=== PATIENT | male | born 1965 | race Caucasian/White ===

== ENCOUNTER 2016-11-07 19:22 | Emergency (ER) | payer OTHER ==
[2016-11-07 19:28] VITALS: RESP 16; TEMP 98.2
[2016-11-07] MEDS ORDERED: TDAP ADULT 0.5 ML INJ (BOOSTRIX) IM ONE (19:46)
--- NOTE | 2016-11-07 19:47 | EDPHY ---
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 He sustained a head laceration and has a headache but did not lose consciousness. No neck or back pain and no weakness or numbness in extremities. No vomiting. REVIEW OF SYSTEMS: Eye: no change in vision ENT: no sore throat Cardiac: no chest pain or syncope Pulmonary: no cough or SOB Abdomen: no vomiting, diarrhea, abdominal pain Musculoskeletal: no back pain Skin: Scalp laceration Neuro: HPI Constitutional: no fever : no urinary symptoms A comprehensive 10 point review of systems is otherwise negative aside from elements mentioned in the history of present illness. PAST MEDICAL HISTORY: Negative Social history: Tobacco smoker, this happened at work General Appearance: Alert and conversant, cooperative. Eyes: No scleral icterus. ENT, Mouth: Normal mucous membranes. No hemotympanum Respiratory: Normal respiratory effort, breath sounds equal, lungs are clear to auscultation. Cardiovascular: Regular rate and rhythm. Gastrointestinal: Abdomen is soft and non tender. Neurological: Alert and oriented x3. Normally conversant. Face symmetric, normal movement and sensation in all extremities. Skin: 3 cm scalp laceration on the right occiput. Musculoskeletal: No cervical thoracic or lumbar spine tenderness to palpation. Psychiatric: Not agitated. Emergency Department course/MDM: Patient has moderate headache and severe mechanism with 5 foot fall onto concrete, I feel potential benefit of CT outweighs potential harm in this case. Fall from a height of greater than 3 feet. Tetanus updated. Cervical spine cleared clinically. Smoking Status: Heavy smoker Constitutional: Initial Vital Signs Temperature (C) 36.8 C 11/07/16 19:24 Heart Rate 99 11/07/16 19:24 Respiratory Rate 16 11/07/16 19:24 Blood Pressure 139/91 H 11/07/16 19:24 O2 Sat (%) 97 11/07/16 19:24 O2 Delivery Mode Room Air Allergies/Adverse Reactions: No Known Allergies Allergy (Unverified 11/07/16 19:28) Home Medications: Medication Instructions Recorded NK [No Known Home Meds] 11/07/16 Medical Decision Making - Diagnostics Imaging: Imaging Impressions Head CT 11/07/16 19:46 Impression: 1. Left parieto-occipital scalp laceration with no acute intracranial findings. 2. Mild atrophy as above. Findings discussed with Juliano Degroot 11/07/2016 at 20:50. Noncontrast head CT performed for trauma viewed independently by myself is negative. Reviewed with Carla at 8:52 p.m. negative for trauma Procedures: Procedure: Laceration repair. Verbal consent was obtained from the patient. The 3 cm laceration on the occipital scalp was anesthetized using 0.5% bupivacaine with epinephrine. The wound was irrigated with standard emergency department protocol, draped and explored. There were no deep structures involved. No foreign body found. The wound was repaired with jadon. The wound repair was simple. Excellent hemostasis was obtained. Wound care instructions were discussed and the patient was warned regarding scarring. The procedure was performed by myself. Differential Diagnosis: Differential diagnosis considered for head injury including but not limited to concussion, skull fracture, intraparenchymal contusion, subarachnoid, subdural and epidural hematoma. - Data Points Medications Given: Discontinued Medications Diphtheria/Tetanus/Acell Pertussis (Boostrix) 0.5 ml IM .ONCE ONE Stop: 11/07/16 19:47 Last Admin: 11/07/16 19:52 Dose: 0.5 ml Departure - Departure Disposition: Home, Routine, Self-Care Clinical Impression: Scalp laceration Qualifiers: Encounter type: initial encounter Qualified Code(s): S01.01XA - Laceration without foreign body of scalp, initial encounter Condition: Good Instructions: Laceration (ED), Head Injury (ED) Referrals: NONE *PRIMARY CARE P,. [Primary Care Provider] - As per Instructions (Referred back to work comp clinic. Wound Care Follow-Up: Removal of sutures in 10 days. )
[2016-11-07 21:10] VITALS: BP 153/96; PULSE 98; O2SAT 98
== END 2016-11-07 21:10 | disposition home or self-care (01) ==
PROC: 0HQ0XZZ Repair Scalp Skin, External Approach (ICD-10-PCS; principal; 2016-11-07)
DX: S01.01XA Laceration without foreign body of scalp, initial encounter (principal); F17.200 Nicotine dependence, unspecified, uncomplicated; Z23 Encounter for immunization; W11.XXXA Fall on and from ladder, initial encounter; Y92.69 Other specified industrial and construction area as the place of occurrence of the external cause; Y99.0 Civilian activity done for income or pay; Y93.89 Activity, other specified

== ENCOUNTER 2017-02-25 09:12 | Day surgery (SDC) | payer MEDICAID, OTHER ==
--- NOTE | 2017-02-25 09:50 | PDANEPAE ---
ANE History of Present Illness GI upset, anemia ANE Past Medical History - Cardiovascular History Hx Hypertension: No Hx Arrhythmias: No Hx Chest Pain: No Hx Coronary Artery / Peripheral Vascular Disease: No Hx CHF / Valvular Disease: No Hx Palpitations: No Cardiovascular History Comment: anemia - Pulmonary History Hx COPD: No Hx Asthma/Reactive Airway Disease: No Hx Recent Upper Respiratory Infection: No Hx Oxygen in Use at Home: No Hx Sleep Apnea: No Sleep Apnea Screening Result - Last Documented: Negative Pulmonary History Comment: smokes 1 ppd. recent cough. - Neurologic History Hx Cerebrovascular Accident: No Hx Seizures: No Hx Dementia: No - Endocrine History Hx Diabetes: No - Renal History Hx Renal Disorders: No - Liver History Hx Hepatic Disorders: Yes Hepatic History Comment: Hep C - Neurological & Psychiatric Hx Hx Neurological and Psychiatric Disorders: No - Cancer History Hx Cancer: No - Congenital Disorder History Hx Congenital Disorders: No - GI History Hx Gastrointestinal Disorders: Yes Gastrointestinal History Comment: blood in stool. - Other Health History Other Health History: weight loss - Chronic Pain History Chronic Pain: No - Surgical History Prior Surgeries: none ANE Review of Systems - Exercise capacity METS (RN): 4 METS ANE Patient History - Allergies Allergies/Adverse Reactions: No Known Allergies Allergy (Verified 02/24/17 14:35) - Home Medications Home medications: home medication list seen and reviewed Home Medications: NK [No Known Home Meds] 11/07/16 [Last Taken Unknown] - Anes Hx Anes Hx: no prior problems - Smoking Hx Smoking Status: Heavy smoker ANE Labs/Vital Signs - Vital Signs Height: 190.5 cm Weight: 61.235 kg ANE Physical Exam - Airway Neck exam: FROM Mallampati Score: Class 1 Mouth exam: dentures - Pulmonary Pulmonary: no respiratory distress - Cardiovascular Cardiovascular: regular rate and rhythym - ASA Status ASA Status: II ANE Anesthesia Plan Anesthesia Plan: GA with mask, MAC
[2017-02-25] MEDS ORDERED: MIDAZOLAM 2 MG/2 ML VIAL IVP ONE (09:51)
[2017-02-25] MEDS ORDERED: LR 1,000 ML IV SCH (10:00)
[2017-02-25] MEDS ORDERED: PROPOFOL 200 MG/20 ML VIAL ONE ×2 (10:15)
--- NOTE | 2017-02-25 10:29 | PDGENHP ---
History & Physical Chief Complaint: weight loss, +FOBT History of Present Illness: weight loss, Pos FOBT Pertinent Past, Social, Family History: EtOH
[2017-02-25] MEDS ORDERED: LR 500 ML IV PRN (10:46)
[2017-02-25] MEDS ORDERED: ACETAMINOPHEN 500 MG TAB PO PRN (10:46)
[2017-02-25] MEDS ORDERED: NALOXONE HCL 0.4 MG/ML INJ IVP PRN (10:46)
[2017-02-25] MEDS ORDERED: fentaNYL 100 MCG/2 ML INJ IVP PRN (10:46)
[2017-02-25] MEDS ORDERED: ONDANSETRON 4 MG/2 ML VIAL IVP PRN (10:46)
[2017-02-25] MEDS ORDERED: PROMETHAZINE HCL 25 MG/ML INJ IVP PRN (10:46)
--- NOTE | 2017-02-25 11:01 | POSTANESTH ---
Post Anesthetic Evaluation Cardiovascular Status: Normal, Stable Respiratory Status: Normal, Stable Level of Consciousness/Mental Status: Can Participate in Eval Pain Control: Adequate, Prn Tx Ordered Nausea/Vomiting Control: Adequate, Prn Tx Ordered Complications Possibly Related to Anesthesia: None Noted
[2017-02-25 11:08] VITALS: PULSE 64; TEMP 97.7
[2017-02-25 11:33] VITALS: BP 101/74; RESP 24; O2SAT 99
--- NOTE | 2017-02-25 12:36 | GPN ---
[f rep st] PROCEDURE NOTE DATE OF PROCEDURE: 02/25/2017 PROCEDURE: Colonoscopy with polypectomy and biopsy. INDICATION: Change in bowel habits, positive fecal occult blood test. CONSENT: Informed consent was obtained from the patient after an explanation of risks, benefits, an d alternatives to the procedure. COMPLICATIONS: None. ESTIMATED BLOOD LOSS: None. MEDICATIONS GIVEN: Propofol per anesthesia. DESCRIPTION OF EXAM: After adequate sedation was achieved, the colonoscope was advanced through the anal orifice and as far as the cecum and terminal ilium. The prep was good. Views were good. Pat ient tolerance was good. Retroflexion was performed in the rectum. Photographs were taken of the t erminal ilium, appendiceal orifice, ileocecal valve, and retroflex view in the rectum along with pic tures of polyps and other findings. FINDINGS: 1. Single sigmoid colon polyp, which was sessile and 3 mm in diameter, was removed with cold-snare polypectomy completely and retrieved. 2. A 6 mm descending colon polyp, which was flat, was removed completely with cold snare and retrie miriam. 3. 2 mm descending colon polyp was removed completely with cold-biopsy forceps. Polyp was flat. I t was retrieved and placed in the same jar as the other polyps. 4. Sigmoid diverticulosis was noted. 5. Hemorrhoids were noted. 6. Otherwise normal colonoscopy. IMPRESSION: 1. 3 polyps were removed from the left colon. 2. Sigmoid diverticulosis was present. 3. Otherwise normal colonoscopy. RECOMMENDATIONS: 1. Await biopsy results. If 1 or 2 polyps are adenomas, then repeat colonoscopy in 5 years. If al l 3 polyps are adenomas, then repeat colonoscopy in 3 years. If no polyps are adenomas, repeat colo noscopy in 10 years for average-risk screening. 2. Avoid alcohol use. 3. Follow up with primary care provider. 4. We will contact patient with biopsy results. /[id number]/MODL
== END 2017-02-25 12:50 | disposition home or self-care (01) ==
LOC: FSGY 09:12
PROVIDERS: ATTEND Internal Medicine
PROC: 0DBM8ZX Excision of Descending Colon, Via Natural or Artificial Opening Endoscopic, Diagnostic (ICD-10-PCS; principal; 2017-02-25 11:00)
PROC: 0DBN8ZX Excision of Sigmoid Colon, Via Natural or Artificial Opening Endoscopic, Diagnostic (ICD-10-PCS; principal; 2017-02-25 11:00)
DX: K63.5 Polyp of colon (principal); D12.5 Benign neoplasm of sigmoid colon; D12.4 Benign neoplasm of descending colon; K57.90 Diverticulosis of intestine, part unspecified, without perforation or abscess without bleeding; K64.9 Unspecified hemorrhoids; R63.4 Abnormal weight loss; D64.9 Anemia, unspecified; F17.210 Nicotine dependence, cigarettes, uncomplicated
CPT/HCPCS: J2704

== ENCOUNTER 2017-03-03 17:47 | Emergency (ER) | payer MEDICAID ==
[2017-03-03 18:24] VITALS: RESP 18; TEMP 98.2
[2017-03-03 19:20] LABS: % IMMATURE GRANULYOCYTES 0.3 % (0.0-1.1); ABSOLUTE IMMATURE GRANULOCYTES 0.02 10^3/uL (0.00-0.10); ADD DIFF? NO; ADD MORPH? NO; ADD SCAN? NO; ATYPICAL LYMPHOCYTE FLAG 10 (0-99); FRAGMENT RBC FLAG 0 (0-99); HEMOGLOBIN 8.6 g/dL (13.7-17.5); LEFT SHIFT FLG 10 (0-99); LIPEMIA HEMOLYSIS FLAG 80 (0-99); MEAN CELL HEMOGLOBIN 30.5 pg (27.9-34.1); MEAN CELL HEMOGLOBIN CONCENTR. 33.1 g/dL (32.4-36.7); MEAN CELL VOLUME 92.2 fL (81.5-99.8); MEAN PLATELET VOLUME 10.3 fL (8.7-11.7); PLATELET CLUMPS FLAG 0 (0-99); PLATELET COUNT 179 10^3/uL (150-400); RED BLOOD CELL COUNT 2.82 10^6/uL (4.40-6.38); RED CELL DISTRIBUTION WIDTH 17.1 % (11.5-15.2)
[2017-03-03 19:26] LABS: ALANINE AMINOTRANSFERASE 77 IU/L (21-72); ALBUMIN 3.2 g/dL (3.5-5.0); ALKALINE PHOSPHATASE 74 IU/L (38-126); ANION GAP 10 mEq/L (8-16); ASPARTATE AMINOTRANSFERASE 155 IU/L (17-59); BILIRUBIN,TOTAL 1.1 mg/dL (0.1-1.4); BILIRUBIN-CONJUGATED 0.7 mg/dL (0.0-0.5); BILIRUBIN-UNCONJUGATED 0.4 mg/dL (0.0-1.1); CALCIUM 8.4 mg/dL (8.5-10.4); CARBON DIOXIDE 24 mEq/l (22-31); CHLORIDE 99 mEq/L (97-110); CREATININE 0.5 mg/dL (0.7-1.3); GLOMERULAR FILTRATION RATE > 60; GLUCOSE 89 mg/dL (70-100); POTASSIUM 4.3 mEq/L (3.5-5.2); SODIUM 133 mEq/L (134-144); TOTAL PROTEIN 7.4 g/dL (6.3-8.2)
[2017-03-03 19:32] LABS: INR 1.39 (0.83-1.16)
[2017-03-03 19:33] LABS: APTT 28.6 SEC (23.0-38.0)
[2017-03-03 19:38] LABS: COLOR YELLOW; LEUKOCYTE ESTERASE,URINE NEGATIVE (NEGATIVE); NITRITE,URINE NEGATIVE (NEGATIVE)
--- NOTE | 2017-03-03 20:03 | EDPHY ---
H & P Time Seen by Provider: 03/03/17 18:51 HPI/ROS: CHIEF COMPLAINT: Abdominal distention HISTORY OF PRESENT ILLNESS: 51-year-old male with alcoholism presents with abdominal distention. 1 month history of gradually increasing abdominal girth. Associated with shortness of breath. No abdominal pain, fever for or constipation. He was seen in the clinic today and there was a concern for spontaneous bacterial peritonitis, so he was sent to the emergency department for further evaluation. He had a colonoscopy on 02/25/2017 because of change in bowel movements. Colonoscopy revealed multiple polyps and diverticulosis. He stopped drinking 10 days ago. REVIEW OF SYSTEMS: Constitutional: No fever, no chills Eyes: No visual changes ENT: No sore throat Respiratory: No cough Cardiac: No chest pain Gastrointestinal: No nausea, no vomiting, no abdominal pain Genitourinary: No hematuria, no dysuria Musculoskeletal: No leg pain or swelling Skin: No rash Neurological: No headache, no numbness, no weakness Psychiatric: No depression Past Medical/Surgical History: Alcoholism Cirrhosis/ascites Social History: Denies recent alcohol PCP: Dr. Coburn Smoking Status: Heavy smoker Physical Exam: General Appearance: Alert, pleasant Eyes: Pupils equal and round, no conjunctival pallor or injection ENT, Mouth: Mucous membranes moist Neck: Normal inspection Respiratory: Lungs are clear to auscultation Cardiovascular: Regular rate and rhythm Gastrointestinal: Abdomen is distended, no tenderness, normal bowel sounds Neurological: A&O, nonfocal, normal gait Skin: Warm and dry, no rash Extremities: Nontender, no pedal edema Psychiatric: Mood and affect normal Constitutional: Initial Vital Signs Temperature (C) 36.8 C 03/03/17 17:52 Heart Rate 85 03/03/17 17:52 Respiratory Rate 18 03/03/17 17:52 Blood Pressure 118/80 03/03/17 17:52 O2 Sat (%) 99 03/03/17 17:52 O2 Delivery Mode Room Air Allergies/Adverse Reactions: No Known Allergies Allergy (Verified 03/03/17 17:49) Home Medications: Medication Instructions Recorded NK [No Known Home Meds] 11/07/16 Medical Decision Making ED Course/Re-evaluation: There is no evidence of SBP. His abdomen is soft and nontender, no leukocytosis and no fever. There is also no indication for therapeutic paracentesis. He does have severe anemia, with a hematocrit of 26. There are no prior CBCs for comparison. He recently had a colonoscopy that did not show any evidence of hemorrhage. I do not feel that he needs a blood transfusion today. However he will need close follow-up and will need to be on diuretics. [facility] called to arrange follow-up for this patient. However I did not receive a call back. The patient will call the clinic to make an appointment. Differential Diagnosis: Differential diagnosis includes though it is not limited to appendicitis, cholecystitis, diverticulitis, pyelonephritis, bowel perforation, small bowel obstruction. - Data Points Laboratory Results: Laboratory Results 03/03/17 19:10 03/03/17 19:10 Departure - Departure Disposition: Home, Routine, Self-Care Clinical Impression: Abdominal distension Ascites Qualifiers: Ascites type: due to alcoholic cirrhosis Qualified Code(s): K70.31 - Alcoholic cirrhosis of liver with ascites Anemia Qualifiers: Anemia type: unspecified type Qualified Code(s): D64.9 - Anemia, unspecified Condition: Good Instructions: Ascites (ED), Anemia (ED) Referrals: Carlos Eduardo Coburn MD [Primary Care Provider] - 2-3 days without fail
[2017-03-03 20:48] VITALS: BP 119/76; PULSE 69; O2SAT 97
== END 2017-03-03 20:48 | disposition home or self-care (01) ==
DX: R14.0 Abdominal distension (gaseous) (principal); K70.31 Alcoholic cirrhosis of liver with ascites; D64.9 Anemia, unspecified; R06.02 Shortness of breath; F17.200 Nicotine dependence, unspecified, uncomplicated

== ENCOUNTER → 2018-04-22 | Outpatient (CLI) | payer MEDICAID | LOC: FIMAGING 18:27 | PROVIDERS: ATTEND Psychiatry & Neurology Neurology | DX: R40.20 Unspecified coma (principal) ==

== ENCOUNTER → 2018-04-25 | Outpatient (CLI) | payer MEDICAID ==
--- NOTE | 2018-04-25 14:19 | CPEEG ---
FOUR-HOUR VIDEO EEG DATE OF STUDY: 04/25/2018 INTERPRETATION: This 4-hour video EEG recording is normal. There were no potentially epileptogenic abnormalities present in the recording. The patient did not have any clinical events during the vide o EEG monitoring session. REPORT: This 4-hour video EEG contains 10 Hz alpha activity to the posterior head regions. There wa s no abnormal activation at rest, with hyperventilation or photic stimulation. The patient became dr owsy and fell into sustained sleep intermittently during the study. There was no abnormal activation during drowsiness, sleep, or during times of arousal. The patient did not have any clinical events during the video EEG monitoring session. /[id number]/MODL
== END ==
LOC: FCPNEURO 07:40
PROVIDERS: ATTEND Psychiatry & Neurology Neurology
DX: R40.20 Unspecified coma (principal)

== ENCOUNTER 2018-08-21 17:14 | Inpatient (IN) | payer SELFPAY ==
[2018-08-21] MEDS ORDERED: LORazepam 2 MG/ML INJ IVP ONE (17:22)
--- NOTE | 2018-08-21 17:22 | EDPHY ---
H & P Time Seen by Provider: 08/21/18 17:17 HPI/ROS: CHIEF COMPLAINT: Seizure, alcohol withdrawal HISTORY OF PRESENT ILLNESS: The patient is brought to the emergency department by paramedics after a witnessed seizure at a grocery store. The patient reportedly had a tonic-clonic seizure lasting approximately a minute. He was able to sit down on the ground prior to the seizure per witnesses. The patient arrives in denies with complaints of headache. He did bite his lip. He reports that he recently started drinking alcohol again several months ago. He has had nothing to drink for the past 2 days. He endorses symptoms of tremor. He denies acute abdominal pain, acute headache, acute numbness or weakness. REVIEW OF SYSTEMS: A comprehensive 10 point review of systems is otherwise negative aside from elements mentioned in the history of present illness. Source: Patient, Family, EMS - Medical/Surgical History Hx Asthma: No Hx Chronic Respiratory Disease: No Hx Diabetes: No Hx Cardiac Disease: No Hx Renal Disease: No Hx Cirrhosis: No Hx Alcoholism: Yes Hx HIV/AIDS: No Hx Splenectomy or Spleen Trauma: No Other PMH: Past medical history: Alcoholism, cirrhosis, prior alcohol withdrawal seizure - Social History Smoking Status: Heavy smoker - Physical Exam Exam: General Appearance: Thin male, cachectic, no acute distress Head: Normocephalic atraumatic Eyes: Pupils equal and round no pallor or injection ENT, Mouth: Moist mucous membranes, superficial laceration noted to the lower lip. Respiratory: There are no retractions, lungs are clear to auscultation Cardiovascular: Tachycardic Gastrointestinal: Abdomen is soft and nontender, no masses, bowel sounds normal Neurological: 5/5 strength noted all 4 extremities, patient is slightly postictal, tremulous Skin: Warm and dry, no rashes Musculoskeletal: Neck is supple nontender Extremities: symmetrical, full range of motion Constitutional: Initial Vital Signs Temperature (C) 36.5 C 08/21/18 17:21 Heart Rate 155 H 08/21/18 17:21 Respiratory Rate 16 08/21/18 17:21 Blood Pressure 145/103 H 08/21/18 17:21 O2 Sat (%) 94 08/21/18 17:21 O2 Delivery Mode Room Air Allergies/Adverse Reactions: No Known Allergies Allergy (Verified 03/03/17 17:49) Home Medications: Medication Instructions Recorded NK [No Known Home Meds] 11/07/16 Medical Decision Making ED Course/Re-evaluation: The patient presents the ED after an alcohol withdrawal seizure. The patient arrives to the emergency department with a CIWA score of 20. Patient had an IV established. He received 2 mg of Ativan. He received a L of normal saline. Patient received additional 2 mg of Ativan at 6:15 p.m.. and continues to be tachycardic with a heart rate in the 150s. The patient will require admission to the hospital. He will be placed in the step-down unit as he may require Precedex if he develops more significant symptoms of withdrawal. Consultation was made with Dr. Jessa Aguilar from the hospitalist service at 7 :00 p.m.. Differential Diagnosis: Differential diagnosis considered includes alcohol withdrawal seizure, status epilepticus, dehydration, metabolic derangement Critical Care Time: Critical care time exclusive of procedures and exclusive of the PA's time was 35 minutes, performed by myself, El Ballesteros MD. Patient presents to the ED with severe alcohol withdrawal having had a seizure. The patient required 4 mg of Ativan for control of his symptoms in the emergency department. He continues to have ongoing tachycardia and will require admission to the intensive care unit. - Data Points Laboratory Results: Laboratory Results 08/21/18 17:18 08/21/18 17:18 08/21/18 08/21/18 17:18 17:18 WBC 13.04 10^3/uL H 10^3/uL (3.80-9.50) RBC 4.06 10^6/uL L 10^6/uL (4.40-6.38) Hgb 13.0 g/dL L g/dL (13.7-17.5) Hct 40.7 % % (40.0-51.0) MCV 100.2 fL H fL (81.5-99.8) MCH 32.0 pg pg (27.9-34.1) MCHC 31.9 g/dL L g/dL (32.4-36.7) RDW 16.7 % H % (11.5-15.2) Plt Count 140 10^3/uL L 10^3/uL (150-400) MPV 9.8 fL fL (8.7-11.7) Neut % (Auto) 78.1 % H % (39.3-74.2) Lymph % (Auto) 12.3 % L % (15.0-45.0) [place] % (Auto) 8.4 % % (4.5-13.0) Eos % (Auto) 0.2 % L % (0.6-7.6) Baso % (Auto) 0.4 % % (0.3-1.7) Nucleat RBC Rel Count 0.2 % % (0.0-0.2) Absolute Neuts (auto) 10.19 10^3/uL H 10^3/uL (1.70-6.50) Absolute Lymphs (auto) 1.61 10^3/uL 10^3/uL (1.00-3.00) Absolute Monos (auto) 1.09 10^3/uL H 10^3/uL (0.30-0.80) Absolute Eos (auto) 0.02 10^3/uL L 10^3/uL (0.03-0.40) Absolute Basos (auto) 0.05 10^3/uL 10^3/uL (0.02-0.10) Absolute Nucleated RBC 0.02 10^3/uL H 10^3/uL (0-0.01) Immature Gran % 0.6 % % (0.0-1.1) Immature Gran # 0.08 10^3/uL 10^3/uL (0.00-0.10) Sodium 137 mEq/L mEq/L (135-145) Potassium 3.8 mEq/L mEq/L (3.5-5.2) Chloride 97 mEq/L mEq/L (97-110) Carbon Dioxide 16 mEq/l L mEq/l (22-31) Anion Gap 24 mEq/L H mEq/L (6-14) BUN 11 mg/dL mg/dL (7-23) Creatinine 0.8 mg/dL mg/dL (0.7-1.3) Estimated GFR > 60 Glucose 131 mg/dL H mg/dL (70-100) Calcium 9.4 mg/dL mg/dL (8.5-10.4) Medications Given: Lorazepam (Ativan Injection) 0 mg IVP Q1H PRN; Protocol PRN Reason: Alcohol Withdrawal w/IV access Stop: 08/22/18 06:09 Last Admin: 08/21/18 18:22 Dose: 4 mg Discontinued Medications Sodium Chloride (Ns) 1,000 mls @ 0 mls/hr IV EDNOW ONE; Wide Open PRN Reason: Protocol Stop: 08/21/18 17:24 Last Admin: 08/21/18 17:26 Dose: 1,000 mls Lorazepam (Ativan Injection) 2 mg IVP EDNOW ONE Stop: 08/21/18 17:23 Last Admin: 08/21/18 17:26 Dose: 2 mg Departure - Departure Disposition: [facility] Clinical Impression: Alcohol withdrawal, Alcohol withdrawal seizure Condition: Good Referrals: NONE *PRIMARY CARE P,. [Primary Care Provider] - As per Instructions
[2018-08-21] MEDS ORDERED: NS 1,000 ML IV ONE ×2 (17:23→18:35)
[2018-08-21 17:28] LABS: PLATELET COUNT 140 10^3/uL (150-400)
[2018-08-21] MEDS ORDERED: LORazepam 1 MG TAB PO PRN (18:09)
[2018-08-21] MEDS: LORazepam 2 MG/ML INJ IVP PRN ×2 (18:22→19:13)
[2018-08-21] MEDS ORDERED: oxyCODONE IR 5 MG TAB PO PRN (18:40)
[2018-08-21] MEDS ORDERED: HYDROCODONE/APAP 5/325 TAB PO PRN (18:40)
[2018-08-21] MEDS ORDERED: LORazepam 2 MG/ML INJ IVP PRN (18:40)
[2018-08-21] MEDS ORDERED: ONDANSETRON 4 MG/2 ML VIAL IVP PRN (18:40)
[2018-08-21] MEDS ORDERED: PROTOCOL MAGNESIUM 1 DOSE IV PRN (18:40)
[2018-08-21] MEDS ORDERED: ACETAMINOPHEN 325 MG TAB PO PRN (18:40)
[2018-08-21] MEDS ORDERED: FLUMAZENIL 0.5 MG/5 ML MDV IVP PRN (18:40)
[2018-08-21] MEDS ORDERED: MAG HYDROX/AL HYDROX/SIMETH 30 ML UDCUP PO PRN (18:40)
[2018-08-21] MEDS ORDERED: PROTOCOL CALCIUM 1 DOSE IV PRN (18:40)
[2018-08-21] MEDS ORDERED: HYDROmorphONE/DILAUDID 1 MG/ML INJ IVP PRN (18:40)
[2018-08-21] MEDS ORDERED: PROTOCOL K PHOSPHATE 1 DOSE IV PRN (18:40)
[2018-08-21] MEDS ORDERED: PROMETHAZINE HCL 25 MG/ML INJ IVP PRN (18:40)
[2018-08-21] MEDS ORDERED: ALBUTEROL 3 ML DEYVIAL IH PRN (18:40)
[2018-08-21] MEDS ORDERED: ONDANSETRON DISINTEGRATING 4 MG TAB PO PRN (18:40)
[2018-08-21] MEDS ORDERED: PROTOCOL POTASSIUM 1 DOSE MISC PRN ×2 (18:40)
[2018-08-21] MEDS ORDERED: NICOTINE POLACRILEX 2 MG GUM B PRN (18:40)
--- NOTE | 2018-08-21 20:13 | PDGENHP ---
History and Physical - Chief Complaint seizure - History of Present Illness 53 yo M with PMH of hepatitis C s/p treatment and cure as well as etoh abuse and cirrhosis who presents to the ER after having witnessed tonic clonic seizure in grocery store. At the time of my evaluation patient had recently received 4mg ativan and was very somnolent and answers to questions were unintelligible however he reported to the ER doctor that although he has been largely sober for a long time he had relapsed for the last several months and had been drinking heavily up until 2 days prior to presentation. He has had seizure in the past and has had outpatient follow up with neurology as recently as April in order to evaluate his seizure history further--he had an EEG and brain MRI at that time, EEG without e/o epileptiform activity and MRI without abnormalities. He was not started on seizure medication at that time and has stated in the past that he was not drinking at all. Given patients mental status , this history obtained entirely by chart review and in discussion with ER doctor. History Information - Allergies/Home Medication List Allergies/Adverse Reactions: No Known Allergies Allergy (Verified 03/03/17 17:49) Home Medications: NK [No Known Home Meds] 11/07/16 [Last Taken Unknown] I have personally reviewed and updated: family history, medical history, social history, surgical history - Past Medical History seizures Additional medical history: alcohol abuse and withdrawal. cirrhosis. hepatitis C s/p treatment. colon polyps - Surgical History Reports: no pertinent surgical hx - Family History Additional family history: unobtainable - Social History Smoking Status: Heavy smoker Alcohol Use: Heavy (reportedly recently had quit up until 3 months ago) Drug Use: Cocaine Additional social history: per chart review patient recently admitting to cocain and alcohol binges Review of Systems Review of Systems: unobtainable 2/2 patient mental status Physical Exam Physical Exam: Temp Pulse Resp BP Pulse Ox 36.5 C 136 H 20 145/97 H 94 08/21/18 17:21 08/21/18 18:57 08/21/18 18:57 08/21/18 18:57 08/21/18 18:57 Constitutional: chronically ill appearing, unkempt, No appears nourished Eyes: PERRL, anicteric sclera Ears, Nose, Mouth, Throat: poor dentition, dry mucous membranes Cardiovascular: regular rate and rhythym, no murmur, rub, or gallop, No edema Respiratory: no respiratory distress, no rales or rhonchi Gastrointestinal: normoactive bowel sounds, soft, non-tender abdomen Genitourinary: no bladder tenderness Skin: warm, abrasion, other (scattered scabs/lesions on chest, possible bug bites) Musculoskeletal: No asymmetric calves Neurologic: CN II-XII Intact, No AAOx3 Psychiatric: encephalopathic Lab Data & Imaging Review 08/21/18 17:18 08/21/18 17:18 WBC 13.04 10^3/uL (3.80-9.50) H 08/21/18 17:18 RBC 4.06 10^6/uL (4.40-6.38) L 08/21/18 17:18 Hgb 13.0 g/dL (13.7-17.5) L 08/21/18 17:18 Hct 40.7 % (40.0-51.0) 08/21/18 17:18 MCV 100.2 fL (81.5-99.8) H 08/21/18 17:18 MCH 32.0 pg (27.9-34.1) 08/21/18 17:18 MCHC 31.9 g/dL (32.4-36.7) L 08/21/18 17:18 RDW 16.7 % (11.5-15.2) H 08/21/18 17:18 Plt Count 140 10^3/uL (150-400) L 08/21/18 17:18 MPV 9.8 fL (8.7-11.7) 08/21/18 17:18 Neut % (Auto) 78.1 % (39.3-74.2) H 08/21/18 17:18 Lymph % (Auto) 12.3 % (15.0-45.0) L 08/21/18 17:18 [place] % (Auto) 8.4 % (4.5-13.0) 08/21/18 17:18 Eos % (Auto) 0.2 % (0.6-7.6) L 08/21/18 17:18 Baso % (Auto) 0.4 % (0.3-1.7) 08/21/18 17:18 Nucleat RBC Rel Count 0.2 % (0.0-0.2) 08/21/18 17:18 Absolute Neuts (auto) 10.19 10^3/uL (1.70-6.50) H 08/21/18 17:18 Absolute Lymphs (auto) 1.61 10^3/uL (1.00-3.00) 08/21/18 17:18 Absolute Monos (auto) 1.09 10^3/uL (0.30-0.80) H 08/21/18 17:18 Absolute Eos (auto) 0.02 10^3/uL (0.03-0.40) L 08/21/18 17:18 Absolute Basos (auto) 0.05 10^3/uL (0.02-0.10) 08/21/18 17:18 Absolute Nucleated RBC 0.02 10^3/uL (0-0.01) H 08/21/18 17:18 Immature Gran % 0.6 % (0.0-1.1) 08/21/18 17:18 Immature Gran # 0.08 10^3/uL (0.00-0.10) 08/21/18 17:18 Sodium 137 mEq/L (135-145) 08/21/18 17:18 Potassium 3.8 mEq/L (3.5-5.2) 08/21/18 17:18 Chloride 97 mEq/L (97-110) 08/21/18 17:18 Carbon Dioxide 16 mEq/l (22-31) L 08/21/18 17:18 Anion Gap 24 mEq/L (6-14) H 08/21/18 17:18 BUN 11 mg/dL (7-23) 08/21/18 17:18 Creatinine 0.8 mg/dL (0.7-1.3) 08/21/18 17:18 Estimated GFR > 60 08/21/18 17:18 Glucose 131 mg/dL (70-100) H 08/21/18 17:18 Calcium 9.4 mg/dL (8.5-10.4) 08/21/18 17:18 Assessment & Plan Assessment: Alcohol withdrawal (Acute) Alcohol withdrawal seizure (Acute) 53 yo M with PMH of hep c, cirrhosis and etoh abuse and prior seizures presumably due to etoh w/d presenting s/p seizure # seizure: witnessed seizure occurring at grocery store in the setting of alcohol relapse and no drink x 2 days per his report to ER doctor, has had prior seizures that were not clearly related to alcohol and has been evaluated by neurology in the past with EEG and brain MRI performed in April. Not chronically on antiepileptics. May be beneficial to have neurology weigh in while in house given their involvement as an OP and will put in consult for the am. # etoh abuse and withdrawal: patient with what sounds like longstanding hx of etoh abuse though on several recent OP evaluations has claimed that he has been sober other than brief binges, today espoused 2-3 months of heavy drinking, will monitor on ciwa, has required high doses of ativan already for high CIWA scores and is very high risk for severe withdrawal, will monitor in SDU # cirrhosis: does not appear decompensated currently, will monitor LFTs and coags # hepatitis C: was treated at [facility] and reportedly cured # thrombocytopenia: due to etoh abuse presumably, trending # IP status, will require > 48 hours stay for eval/mgmt of above, high risk requiring SDU level care Care plan reviewed with ER doctor as above, old records reviewed and summarized as above.
[2018-08-21] MEDS: NS 1,000 ML IV SCH (20:55)
[2018-08-21 20:58] LABS: INR 1.13 (0.83-1.16); PROTIME(PATIENT) 14.7 SEC (12.0-15.0)
[2018-08-21] MEDS ORDERED: THIAMINE HCL 500 MG in NS 100 ML IV SCH (21:15)
[2018-08-21] MEDS: POTASSIUM Cl (KCl) 100 ML IV SCH ×2 (21:57→23:10)
[2018-08-21] MEDS: FAMOTIDINE 20 MG TAB PO SCH (22:20)
[2018-08-21] MEDS ORDERED: FAMOTIDINE 20 MG/NACL 50 ML IV ONE (22:30)
[2018-08-22] MEDS: POTASSIUM Cl (KCl) 100 ML IV SCH ×2 (01:45→03:06)
[2018-08-22] MEDS: NS 1,000 ML IV SCH ×2 (04:06→22:34)
[2018-08-22 05:26] LABS: PLATELET COUNT 77 10^3/uL (150-400)
[2018-08-22] MEDS: MULTIVITAMINS 1 EACH TAB PO SCH (08:27)
[2018-08-22] MEDS: FOLIC ACID 1 MG TAB PO SCH (08:27)
[2018-08-22] MEDS: FAMOTIDINE 20 MG TAB PO SCH ×2 (08:27→20:13)
[2018-08-22] MEDS: NICOTINE 21 MG/24 HR PATCH TD SCH (08:28)
[2018-08-22] MEDS ORDERED: ENOXAPARIN 40 MG/0.4 ML SYR SC SCH (09:00)
--- NOTE | 2018-08-22 09:09 | PDMN ---
Medical Necessity Medical necessity: [facility] – [place] M595 substance related disorders 2 days: SZ with PMHx of SZ during ETOH W/D tachycardia, high risk pt anticipate > 2 MN ongoing med nec care, further monitoring and tx.
[2018-08-22] MEDS ORDERED: POTASSIUM CL 10 MEQ TAB PO ONE ×4 (09:47→20:18)
--- NOTE | 2018-08-22 11:37 | HOSPPROG ---
Hospitalist Progress Note Assessment/Plan: Alcohol withdrawal (Acute) Alcohol withdrawal seizure (Acute) 53 yo M with PMH of hep c, cirrhosis and etoh abuse and prior seizures presumably due to etoh w/d presenting s/p seizure # seizure: witnessed seizure occurring at grocery store in the setting of alcohol relapse and no drink x 2 days per his report to ER doctor, has had prior seizures that were not clearly related to alcohol and has been evaluated by neurology in the past with EEG and brain MRI performed in April. Not chronically on antiepileptics. Discussed with who do not recommend anticonvulsants at this time, will see tomorrow AM # etoh abuse and withdrawal: patient with what sounds like longstanding hx of etoh abuse though on several recent OP evaluations has claimed that he has been sober other than brief binges, today espoused 2-3 months of heavy drinking, will monitor on ciwa # cirrhosis: does not appear decompensated currently, will monitor LFTs and coags # hepatitis C: was treated at [facility] and reportedly cured # thrombocytopenia: due to etoh abuse presumably, trending # IP status, will require > 48 hours stay for eval/mgmt of above, high risk requiring SDU level care Subjective: Patient reports no complaints this AM, AAOx2 Objective: Vital Signs Temp Pulse Resp BP Pulse Ox 37.1 C 82 16 117/65 95 08/22/18 07:35 08/22/18 08:30 08/22/18 07:35 08/22/18 08:30 08/22/18 08:30 Laboratory Results 08/22/18 05:07 08/22/18 05:07 08/21/18 08/22/18 08/23/18 05:59 05:59 05:59 Intake Total 3871 Output Total 1350 Balance 2521 PT 14.7 SEC (12.0-15.0) 08/21/18 17:18 INR 1.13 (0.83-1.16) 08/21/18 17:18 - Physical Exam Constitutional: chronically ill appearing, unkempt Eyes: PERRL Ears, Nose, Mouth, Throat: dry mucous membranes Respiratory: no respiratory distress Gastrointestinal: No distension Neurologic: No AAOx3 Psychiatric: No interacting appropriately ICD10 Worksheet Patient Problems: Problems Problem Status Onset Alcohol withdrawal Acute Alcohol withdrawal seizure Acute Abdominal distension Acute Anemia Acute Ascites Acute
[2018-08-22] MEDS ORDERED: CALCIUM GLUCONATE 50 ML IV ONE (12:49)
[2018-08-22] MEDS ORDERED: MAGNESIUM SULF 1 GM/DEXTROSE 100 ML IV ONE (12:49)
[2018-08-22] MEDS ORDERED: CALCIUM GLUCONATE 1 GM in D5W 50 ML IV ONE (13:00)
--- NOTE | 2018-08-22 13:33 | ASMTCMCOM ---
CM Note CM Note Notes: Pt discussed in rounds and CM conferred with Ethics (see ethics note in note section for details). Pt presents with ETOH withdrawl. Per reports pt has a history of a period of sobriety for about a year, started drinking again in May and was found down in a store. Per reports pt's mother recently passed and his brother took all the benefits. At this time, pt is an unreliable historian, it is unknown if pt has any family in the area, CM discussed case with Ethics, they are assisting to investigate if there are any family/supports in the area and requested CM to follow/up with pt when more alert/oriented and contact if needed. [facility] reportedly [facility], [facility] has been contacted. Reports indicate pt entered [facility] March 2018. Unknown current status. Pt will need ETOH resources prior to discharge. PT rec: SNF CM to follow. Plan: SNF Date Signed: 08/22/2018 01:28 PM Electronically Signed By:YOBANY White
[2018-08-22] MEDS ORDERED: THIAMINE HCL 500 MG in NS 100 ML IV SCH (14:00)
[2018-08-22] MEDS: THIAMINE HCL 500 MG in NS 100 ML IV SCH ×2 (14:15→21:19)
[2018-08-22] MEDS ORDERED: LACTULOSE 20 GM/30 ML UDCUP PO SCH (16:00)
[2018-08-22] MEDS ORDERED: POTASSIUM Cl (KCl) 100 ML IV SCH (17:00)
--- NOTE | 2018-08-22 17:04 | GCON ---
PULMONARY CRITICAL CARE CONSULTATION DATE OF CONSULTATION: 08/22/2018 REASON FOR CONSULTATION: Intensive care unit evaluation and management of alcohol withdrawal associa husam with a seizure. HISTORY: The patient is a 53-year-old, homeless gentleman. He has a history of chronic alcohol abus e. Apparently has been binge drinking recently, with his last drink 2 days prior to his admission ye . He was at a grocery store when he collapsed with a tonic-clonic seizure. The paramedics we re called, and he was brought to the emergency department. There is a history of previous alcohol wi thdrawal and alcohol withdrawal seizures. EEG and MRI were done in the past, and both were negative. The patient remained postictal and confused, perhaps withdrawing as well, and he was, thus, admitted to the Intensive Care Unit on step-down status. PAST MEDICAL HISTORY: Remarkable for chronic alcoholism, alcohol withdrawal seizures, history of kno wn cirrhosis, hepatitis C treated in the past, and ongoing tobacco abuse, approximately a pack of cig arettes per day. According to his chart, there is also a history of cocaine abuse. SOCIAL HISTORY: The patient is homeless. He has a brother who lives in this area. He and his broth er previously shared a condominium, which was repossessed. The patient has worked in the past, but n ot recently. FAMILY HISTORY: Noncontributory. REVIEW OF SYSTEMS: A 10-point review of systems is negative. PHYSICAL EXAMINATION: GENERAL: Reveals a somewhat disheveled, thin individual, who is sitting up on the side of the bed. He is oriented x2-/2 currently, not to the exact date, but he does know the m ont and the year. VITAL SIGNS: Blood pressure is 150/90, heart rate 85, with sinus rhythm on the m onitor. He is on room air. Saturations are 95%. He is afebrile. HEENT: Remarkable for somewhat d ry mucous membranes. Pupils are equal. There is no trauma about the head. There is no lymphadenopa thy or thyromegaly, no jugular venous distention. PULMONARY: The chest reveals decreased breath dipti nds bilaterally. There are no rhonchi, no significant wheezes. Expiratory phase is prolonged. HEAR T: Regular in rate and rhythm without significant murmur or gallop. ABDOMEN: Soft, nontender. Org anomegaly cannot be appreciated. Bowel sounds are diminished, but present. No Ragland catheter is in place. EXTREMITIES: Unremarkable for edema, cords, or tenderness. NEUROLOGIC: Nonfocal. He was n ot ambulated. DATABASE: CT scan of the head on admission was unremarkable for acute intracranial pathology. LABORATORY: White blood cell count 7800, hematocrit 34, platelets 77,000. PT and PTT were normal on admission. Sodium is 137, potassium 3.7, CO2 23, BUN 9 with creatinine 0.6. Glucose is normal. Io nized calcium is low at 1.03, phosphorus normal at 3.3, and magnesium low at 1.5. Ammonia is negativ e. Blood alcohol on admission was negative. THC was the only positive on his urine tox screen. ASSESSMENT: 1. Alcohol withdrawal seizure. 2. Alcohol withdrawal. On the CIWA protocol. He is not requiring Precedex. He is on p.r.n. Ativan , which appears to be controlling his symptoms well. He has been given thiamin. 3. History of tobacco abuse. Likely does have a component of chronic obstructive pulmonary disease. He is on a nicotine patch. DuoNebs will be prescribed on an as-needed basis. 4. History of homelessness. 5. Prophylaxis: On enoxaparin and famotidine. The latter has been discontinued, as he is eating. PLAN AND RECOMMENDATIONS: The patient will be kept in the Intensive Care Unit on step-down unit stat us for now. He will be kept on the CIWA protocol, and given Ativan as indicated. He can possibly be switched to oral Librium tomorrow. Electrolytes and CBC will be followed. Enoxaparin and Pepcid wi ll be continued. Albuterol can be given as needed. Nicotine patch will be kept in place. Further plans and recommendations will be made based on his progress over the next 12-24 hours. /[id number]/MODL
[2018-08-22] MEDS ORDERED: ADENOSINE 6 MG/2 ML VIAL ONE (18:30)
[2018-08-22] MEDS ORDERED: DILTIAZEM 25 MG/5 ML VIAL IVP ONE ×2 (18:43→18:45)
--- NOTE | 2018-08-22 18:49 | HOSPPROG ---
Hospitalist Progress Note Assessment/Plan: Cross cover note: Called by nursing that patient went into SVT--rate in the 150s, up to 180 briefly. Given adenosine and slowed down to reveal a fib--given diltiazem x 1 and will start lovenox. Objective: Vital Signs Temp Pulse Resp BP Pulse Ox 37.1 C 87 23 H 150/95 H 95 08/22/18 07:35 08/22/18 16:00 08/22/18 16:00 08/22/18 16:00 08/22/18 16:00 Laboratory Results 08/22/18 05:07 08/22/18 17:55 08/21/18 08/22/18 08/23/18 05:59 05:59 05:59 Intake Total 3871 408 Output Total 1350 1000 Balance 2521 -592 PT 14.7 SEC (12.0-15.0) 08/21/18 17:18 INR 1.13 (0.83-1.16) 08/21/18 17:18 ICD10 Worksheet Patient Problems: Problems Problem Status Onset Abdominal distension Acute Ascites Acute Anemia Acute Alcohol withdrawal Acute Alcohol withdrawal seizure Acute
[2018-08-22] MEDS ORDERED: ENOXAPARIN 60 MG/0.6 ML SYR SC SCH (21:00)
[2018-08-23] MEDS: THIAMINE HCL 500 MG in NS 100 ML IV SCH ×3 (05:07→21:18)
[2018-08-23 06:00] LABS: PLATELET COUNT 88 10^3/uL (150-400)
[2018-08-23] MEDS: FAMOTIDINE 20 MG TAB PO SCH ×2 (09:17→21:18)
[2018-08-23] MEDS: FOLIC ACID 1 MG TAB PO SCH (09:17)
[2018-08-23] MEDS: NICOTINE 21 MG/24 HR PATCH TD SCH (09:17)
[2018-08-23] MEDS: MULTIVITAMINS 1 EACH TAB PO SCH (09:17)
[2018-08-23] MEDS ORDERED: POTASSIUM CL 10 MEQ TAB PO ONE ×3 (09:19→21:09)
[2018-08-23] MEDS ORDERED: MAGNESIUM SULF 1 GM/DEXTROSE 100 ML IV ONE (09:20)
[2018-08-23] MEDS ORDERED: CALCIUM GLUCONATE 50 ML IV ONE (09:58)
[2018-08-23] MEDS ORDERED: CALCIUM GLUCONATE 1 GM in D5W 50 ML IV ONE (10:30)
--- NOTE | 2018-08-23 10:33 | GCON ---
[f rep st] CONSULTATION NEUROLOGY CONSULT REFERRING PHYSICIAN: Dr. Abel CHIEF COMPLAINT: Alcohol withdrawal seizures. HISTORY OF PRESENT ILLNESS: The patient is a very pleasant 53-year-old gentleman who is an alcoholic. I have seen him as an outpatient for alcohol withdrawal seizures. We performed an MRI brain and 4-hour video EEG in the 2017. Both of these studies were essentially normal without any evidence of an underlying seizure disorder. The patient had been sober at that time and was committed to chemical dependence treatment; however, since I last saw in the clinic, he began drinking heavily again for around 2 months according the patient. He then abruptly stopped drinking and 2 days later had a witnessed generalized tonic-clonic seizure, which occurred on 08/21/2018, in a grocery store. He was brought to the ED for acute stabilization. Head CT in the ED was done and showed no acute abnormalities. He has had no further seizures in the ED and is on CIWA protocol. He is receiving supplemental thiamine and banana bag. He is stable and confirms the above history. REVIEW OF SYSTEMS: Ten-point review of systems was done only pertinent to the HPI. For past medical history, social history, family history, home medications, allergies, see Dr. Aguilar's H and P. PHYSICAL EXAM: VITAL SIGNS: 107/83, afebrile at 37 degrees, heart rate 80s. Higher mental functions, awake, alert. No aphasia. Cranial nerve exam normal 2 through 7 and 12. Motor exam normal. No focal weakness. Coordination: He has some mild action tremor in his upper extremities with extension. IMPRESSION/PLAN: 1. Alcoholism. 2. Alcohol withdrawal seizure. The patient is now stable on CIWA protocol. He is receiving supplemental thiamine and a banana bag. We had a long discussion regarding his underlying alcoholism in the morbidity and mortality related to alcoholism. I counseled him that as this was a provoked seizure from alcohol withdrawal, chronic anticonvulsant medications are not indicated. The underlying treatment is treatment of his chemical dependence. He understands and appreciates counseling. He will be on indefinite driving restrictions and seizure precautions. He is agreeable. He will see outpatient chemical dependence treatment again. He understands that alcoholism is a fatal disease. No further recommendations now. We will continue to follow as needed. Please do not hesitate to call if there are any questions or change in neurologic status with the patient. We appreciate the consultation. Fifty total minutes floor time today reviewing records, both inpatient, outpatient; over 50% in counseling and coordination of care. /[id number]/MODL MTDD
--- NOTE | 2018-08-23 10:43 | PDINTPN ---
Broadcasting Equipment Mechanic Progress Note Assessment/Plan: Assessment: Alcohol withdrawal seizure. Had postictal confusion, now resolved. Chronic alcohol abuse, recently again drinking after being abstinent for some time. On CIWA, scale currently low and likely over withdrawal at this point. Metabolic: Hypocalcemic this morning. On replacement protocols. Homeless: May no longer have a bed at the [facility]. [facility]ailman involved. History of cirrhosis, hepatitis-C. Ammonia normal. Thrombocytopenia: Improving. 88,000 today. Atrial fibrillation: Brief episode overnight. Now back in sinus rhythm. Plan: Can transfer to a medical-surgical bed. Will continue telemetry but does not need PCU. Continue CIWA assessments. Will change to p.r.n. Librium. Follow chemistries, CBC. 30 min of critical care time spent directly with the patient. Discussed with hospitalist, nursing, the ICU multi disciplinary team. Subjective: Denies significant pain, shortness of breath. Oriented. Objective: Vital Signs Temp Pulse Resp BP Pulse Ox 37 C 77 16 107/83 H 96 08/23/18 07:38 08/23/18 07:38 08/23/18 07:38 08/23/18 07:38 08/23/18 07:38 Laboratory Results 08/23/18 05:50 08/23/18 05:50 08/22/18 08/23/18 08/24/18 05:59 05:59 05:59 Intake Total 3871 1576 Output Total 1350 1675 Balance 2521 -99 PT 14.7 SEC (12.0-15.0) 08/21/18 17:18 INR 1.13 (0.83-1.16) 08/21/18 17:18 Laboratory Tests 08/23/18 08/23/18 05:50 05:50 Calcium 8.8 Ionized Calcium 1.09 L Phosphorus 3.2 Magnesium 1.6 Total Bilirubin 1.2 AST 107 H ALT 61 Albumin 4.1 Physical Exam - Physical Exam General Appearance: alert, no apparent distress, thin, other (Up in chair) EENT: PERRL/EOMI, other (On room air) Neck: normal inspection (No JVD) Respiratory: lungs clear, decreased breath sounds (Breath sounds decreased bilaterally, expiratory phase is prolonged, no wheeze), prolonged expiration, No rales, No rhonchi, No wheezing Cardiac/Chest: regular rate, rhythm (Had a brief episode of atrial fibrillation overnight, resolved with 1 dose of diltiazem) Abdomen: normal bowel sounds, non-tender, soft Male Genitalia: other (Using urinal) Skin: normal color, warm/dry Extremities: No pedal edema Neuro/Psych: no motor/sensory deficits (Mild tremor present), No cognition abnormalities (Oriented x3. Slight confusion regarding some issues?) ICD10 Worksheet Patient Problems: Problems Problem Status Onset Abdominal distension Acute Ascites Acute Anemia Acute Alcohol withdrawal Acute Alcohol withdrawal seizure Acute
[2018-08-23] MEDS ORDERED: chlordiazePOXIDE 25 MG CAP PO PRN (10:49)
[2018-08-23] MEDS ORDERED: METOPROLOL TARTRATE 25 MG TAB PO SCH (11:15)
--- NOTE | 2018-08-23 12:11 | HOSPPROG ---
Hospitalist Progress Note Assessment/Plan: Alcohol withdrawal (Acute) Alcohol withdrawal seizure (Acute) SVT (Acute) A Fib (Acute) 53 yo M with PMH of hep c, cirrhosis and etoh abuse and prior seizures presumably due to etoh w/d presenting s/p seizure # seizure: witnessed seizure occurring at grocery store in the setting of alcohol relapse and no drink x 2 days per his report to ER doctor, has had prior seizures that were not clearly related to alcohol and has been evaluated by neurology in the past with EEG and brain MRI performed in April. Not chronically on antiepileptics. Seen by Dr. Marie, Neurology, this am who believes this is 2/2 to alcohol, recommends no antiepileptics, alcohol cessation # etoh abuse and withdrawal: patient with what sounds like longstanding hx of etoh abuse though on several recent OP evaluations has claimed that he has been sober other than brief binges, will switch to PRN Librium for withdrawal, CIWA this AM is 2 #A Fib: Went into SVT yesterday evening, given Adenosine and Diltiazem with conversion to NSR this AM, will continue to monitor on telemetry overnight, if goes back into A Fib start B-Gayatri/[facility] for rate control # cirrhosis: does not appear decompensated currently, will monitor LFTs and coags # hepatitis C: was treated at [facility] and reportedly cured # thrombocytopenia: due to etoh abuse presumably, trending # IP status, will require > 48 hours stay for eval/mgmt of above, high risk requiring SDU level care Dispo: Monitor on telemetry overnight, if stable tomorrow plan to d/c, homeless , has been living in a van Subjective: Patient AAOx3 this AM, no complaints Objective: Vital Signs Temp Pulse Resp BP Pulse Ox 37 C 81 18 140/86 H 96 08/23/18 07:38 08/23/18 11:42 08/23/18 11:42 08/23/18 11:42 08/23/18 11:42 Laboratory Results 08/23/18 05:50 08/23/18 05:50 08/22/18 08/23/18 08/24/18 05:59 05:59 05:59 Intake Total 3871 1576 Output Total 1350 1675 Balance 2521 -99 PT 14.7 SEC (12.0-15.0) 08/21/18 17:18 INR 1.13 (0.83-1.16) 08/21/18 17:18 - Physical Exam Constitutional: chronically ill appearing, unkempt Eyes: PERRL Ears, Nose, Mouth, Throat: moist mucous membranes Cardiovascular: regular rate and rhythym Respiratory: no respiratory distress Gastrointestinal: soft, non-tender abdomen Skin: normal color Neurologic: AAOx3 Psychiatric: interacting appropriately ICD10 Worksheet Patient Problems: Problems Problem Status Onset Alcohol withdrawal Acute Alcohol withdrawal seizure Acute Abdominal distension Acute Anemia Acute Ascites Acute
[2018-08-23] MEDS: ENOXAPARIN 40 MG/0.4 ML SYR SC SCH (12:20)
--- NOTE | 2018-08-23 13:31 | ASMTCMCOM ---
CM Note CM Note Notes: CM met with pt. He reports he left the [facility] program due to conflicts with the staff there. Pt reports he has not been in an outpatient program to maintain sobriety and that he is able to do it on his own. CM provided ETOH resources. Pt reports he is "certain" that he will be sober after this discharge and said he did not need any supportive services. Pt reports he is not interested in going to the [facility] after discharge. CM discussed discharge plans and pt is agreeable to go to the long-term. CM will reserve a bed for pt for tomorrow, pending medical needs. CM notified [facility] and they will meet with pt today. CM to follow. Plan: independent to long-term. Date Signed: 08/23/2018 01:31 PM Electronically Signed By:YOBANY White
[2018-08-24] MEDS: THIAMINE HCL 500 MG in NS 100 ML IV SCH ×3 (05:32→22:07)
[2018-08-24] MEDS ORDERED: CALCIUM GLUCONATE 50 ML IV ONE (07:34)
[2018-08-24] MEDS ORDERED: POTASSIUM CL 10 MEQ TAB PO ONE (07:34)
[2018-08-24] MEDS ORDERED: MAGNESIUM SULF 1 GM/DEXTROSE 100 ML IV ONE (07:34)
[2018-08-24] MEDS ORDERED: CALCIUM GLUCONATE 1 GM in D5W 50 ML IV ONE (08:00)
[2018-08-24] MEDS: NICOTINE 21 MG/24 HR PATCH TD SCH (09:21)
[2018-08-24] MEDS: ENOXAPARIN 40 MG/0.4 ML SYR SC SCH (09:22)
[2018-08-24] MEDS: METOPROLOL TARTRATE 25 MG TAB PO SCH ×2 (09:22→20:12)
[2018-08-24] MEDS: MULTIVITAMINS 1 EACH TAB PO SCH (09:23)
[2018-08-24] MEDS: FAMOTIDINE 20 MG TAB PO SCH ×2 (09:23→20:12)
[2018-08-24] MEDS: FOLIC ACID 1 MG TAB PO SCH (09:23)
--- NOTE | 2018-08-24 13:36 | HOSPPROG ---
Hospitalist Progress Note Assessment/Plan: Alcohol withdrawal (Acute) Alcohol withdrawal seizure (Acute) SVT (Acute) A Fib (Acute) 53 yo M with PMH of hep c, cirrhosis and etoh abuse and prior seizures presumably due to etoh w/d presenting s/p seizure # seizure: suspected 2/2 etoh w/d, evaluated by neurology, no anti-epileptic recommended # etoh abuse and withdrawal: CIWA 1-2 overnight -cont CIWA, prn bzds #A Fib: S/P Adenosine and Diltiazem with conversion to NSR yest, had recurrent A fib this am (tele personally reviewed) -start metoprolol for rate control -Chads-vasc 0, no anticoagulation. Defer ASA for now given low plts and bleeding risk with alcoholic liver dz # cirrhosis: compensated # hepatitis C: was treated at [facility] and reportedly cured # thrombocytopenia: due to etoh abuse presumably -follow # dispo: cont inpt, like dc in am, pt homeless and lives in his van, doesn't want to go to the [facility] Subjective: Pt feels much better. Still a little tremulous. No more seizures. No CP or SOB. Had another run of a fib this am, back in sinus. Objective: Vital Signs Temp Pulse Resp BP Pulse Ox 37.2 C 97 18 139/83 H 96 08/24/18 07:33 08/24/18 07:33 08/24/18 07:33 08/24/18 07:33 08/24/18 07:33 Laboratory Results 08/23/18 05:50 08/24/18 03:45 08/23/18 08/24/18 08/25/18 05:59 05:59 05:59 Intake Total 1576 1330 Output Total 1675 300 525 Balance -99 1030 -525 PT 14.7 SEC (12.0-15.0) 08/21/18 17:18 INR 1.13 (0.83-1.16) 08/21/18 17:18 - Physical Exam Constitutional: no apparent distress Eyes: PERRL Ears, Nose, Mouth, Throat: moist mucous membranes Cardiovascular: regular rate and rhythym Respiratory: no respiratory distress, clear to auscultation Gastrointestinal: normoactive bowel sounds, soft, non-tender abdomen Skin: warm Musculoskeletal: full muscle strength Neurologic: AAOx3 Psychiatric: interacting appropriately ICD10 Worksheet Patient Problems: Problems Problem Status Onset Alcohol withdrawal Acute Alcohol withdrawal seizure Acute Abdominal distension Acute Anemia Acute Ascites Acute
[2018-08-24] MEDS ORDERED: THIAMINE HCL 100 MG TAB PO SCH (21:00)
[2018-08-25] MEDS ORDERED: CALCIUM GLUCONATE 50 ML IV ONE (07:42)
[2018-08-25] MEDS ORDERED: CALCIUM GLUCONATE 1 GM in D5W 50 ML IV ONE (08:00)
[2018-08-25] MEDS: FOLIC ACID 1 MG TAB PO SCH (08:47)
[2018-08-25] MEDS: FAMOTIDINE 20 MG TAB PO SCH (08:47)
[2018-08-25] MEDS: METOPROLOL TARTRATE 25 MG TAB PO SCH (08:47)
[2018-08-25] MEDS: MULTIVITAMINS 1 EACH TAB PO SCH (08:47)
[2018-08-25] MEDS: ENOXAPARIN 40 MG/0.4 ML SYR SC SCH (08:49)
[2018-08-25 08:50] VITALS: BP 138/88
[2018-08-25] MEDS: NICOTINE 21 MG/24 HR PATCH TD SCH (08:51)
--- NOTE | 2018-08-25 17:51 | GDS ---
[f rep st] DISCHARGE SUMMARY DISCHARGE DIAGNOSES: 1. Acute alcohol withdrawal seizure. 2. Paroxysmal atrial fibrillation. 3. Intermittent supraventricular tachycardia. 4. Alcohol abuse. 5. Alcoholic liver disease. 6. Hepatitis C, status post treatment. 7. Thrombocytopenia, likely secondary to alcohol. CONSULTANTS: Dr. Tyree Marie, Neurology. HISTORY OF DETAILS: Please see history and physical dated August 21, 2018. In brief, the patient i s a 53-year-old homeless male who presented to the emergency department after he suffered a seizure. He was admitted to the hospital for further management. HOSPITAL COURSE: The patient was admitted to the step-down unit. His seizure was presumably seconda ry to alcohol withdrawal. Neurology consult was obtained and felt he did not warrant antiepileptics. Also noting the etiology of his seizure is likely alcohol withdrawal. He was placed on CIWA protoc ol, received p.r.n. benzodiazepines. His withdrawal symptoms are completely resolved at the time of discharge. He did, however, prior to discharge, develop a brief episode of SVT and received adenosin e along with diltiazem, successfully converting to normal sinus rhythm. He then developed recurrent brief episodes of atrial fibrillation. He did not have significant rapid ventricular rates, though h is heart rates were 100 to 120s at times. He was started on low-dose metoprolol for rate control and monitored for an additional 24 hours on telemetry. On the day of discharge, his rate is significant ly improved and he will be continued on metoprolol at discharge. His CHADS-VASc score is 1 for hyper tension. I think his bleeding risk outweighs his stroke risk at this point with a HAS-BLED score of 5, which is consistent with 12.5 bleeds per 100 patients annually compared with a CHADS-VASc score of 1, correlating with 2.5% annual stroke risk. Therefore, I did not treat him with anticoagulation. We discussed the use of aspirin instead. However, noting his low platelets and his report of epigast polo abdominal pain on the day of discharge, I think he is high risk for bleeding even on aspirin. Th us, this is not prescribed. DISPOSITION: The patient is discharged to his van in stable condition. FOLLOWUP: He will follow up with [facility]. His primary care doctor is Dr. Coburn. DISCHARGE MEDICATIONS: Please see [facility] completed outpatient medication list. New medications on discharge include Pepcid 20 mg p.o. twice daily, #60, no refills; metoprolol 12.5 mg p.o. twice gwen y, #60, no refills; folic acid 1 mg p.o. daily; multivitamin 1 p.o. daily. /[id number]/MODL
== END 2018-08-25 12:13 | disposition home or self-care (01) | DRG 897 ==
LOC: EDUNIT# → F2N 20:45 → F2W 08-23 17:46
PROVIDERS: ADMIT Internal Medicine; ATTEND Internal Medicine
DX: F10.239 Alcohol dependence with withdrawal, unspecified (principal); G40.89 Other seizures; I47.1 Supraventricular tachycardia; K70.30 Alcoholic cirrhosis of liver without ascites; F14.90 Cocaine use, unspecified, uncomplicated; E86.9 Volume depletion, unspecified; I48.0 Paroxysmal atrial fibrillation; D69.59 Other secondary thrombocytopenia; Z86.19 Personal history of other infectious and parasitic diseases; Z59.0 Homelessness; Z72.0 Tobacco use
CPT/HCPCS: 80307; 92523-GN; 96374; 97116-GP; 97161-GP; 97165-GO; 97530-GO; 97530-GP; 97535-GO; G0480; J0153; J0610; J1650; J2060; J3411; J3475; J3480

== ENCOUNTER 2018-12-02 16:41 | Emergency (ER) | payer MEDICAID ==
--- NOTE | 2018-12-02 16:46 | EDPHY ---
H & P Time Seen by Provider: 12/02/18 16:42 HPI/ROS: CHIEF COMPLAINT: Seizure HISTORY OF PRESENT ILLNESS: History of alcoholism last drink yesterday was seen to have a 4-5 minutes seizure today at the [facility] and was helped to the ground without trauma. EMS was called and brought him in initially postictal and now feeling better. He just does he feels a little bit cold. No head injury, denies neck or back pain, no fever or chills. No vomiting now. REVIEW OF SYSTEMS: Eye: no change in vision ENT: no sore throat Cardiac: no chest pain or syncope Pulmonary: no cough or SOB Abdomen: no vomiting, diarrhea, abdominal pain Musculoskeletal: No back or neck pain Skin: no rash Neuro: no headache Constitutional: no fever : no urinary symptoms A comprehensive 10 point review of systems is otherwise negative aside from elements mentioned in the history of present illness. PAST MEDICAL HISTORY: Discharge 08/25/2018 after alcohol withdrawal seizure. Discharge summary includes hepatitis-C, SVT, atrial fibrillation, alcoholism, withdrawal seizure. Social history: No recent alcohol General Appearance: Alert and conversant, cooperative. Eyes: No scleral icterus. Extraocular motion intact. ENT, Mouth: Left-sided tongue abrasion. Respiratory: Normal respiratory effort, breath sounds equal, lungs are clear to auscultation. Cardiovascular: Regular rate and rhythm. Gastrointestinal: Abdomen is soft and non tender. Neurological: Alert, face symmetric, normal motor and sensory in extremities. Tremulous bilaterally. Not confused. Skin: Warm and dry, no rashes. Musculoskeletal: No midline spinal tenderness. Psychiatric: Not agitated. Emergency Department course/MDM: Likely recurrent withdrawal seizure with neurologic workup in July of this year including cranial imaging and neurology consultation. 2 mg IV Ativan, serial exam. 1716: Sleeping quietly. 1830: Feels better, not tremulous, normal mentation, wants to be discharged to the street to go sleep in his van which I think is reasonable. Declined a referral to detox. Smoking Status: Heavy smoker Constitutional: Initial Vital Signs Temperature (C) 37.3 C 12/02/18 16:45 Heart Rate 92 12/02/18 16:45 Respiratory Rate 18 12/02/18 16:45 Blood Pressure 138/93 H 12/02/18 16:45 O2 Sat (%) 96 12/02/18 16:45 O2 Delivery Mode Nasal Cannula O2 (L/minute) 2 Allergies/Adverse Reactions: No Known Allergies Allergy (Verified 12/02/18 16:47) Home Medications: Medication Instructions Recorded Famotidine [Pepcid 20 MG (*)] 20 mg PO BID tab 08/25/18 Folic Acid [Folic Acid 1 MG (*)] 1 mg PO DAILY tab 08/25/18 Metoprolol Tartrate [Lopressor 25 12.5 mg PO BID #60 tab 08/25/18 mg (*)] Multivitamins [Multivitamin (*)] 1 each PO DAILY tab 08/25/18 Medical Decision Making Differential Diagnosis: Differential diagnosis considered for a seizure including but not limited to electrolyte abnormality, alcohol withdrawal, medication noncompliance, head injury, and breakthrough seizure. - Data Points Laboratory Results: Laboratory Results 12/02/18 16:45 12/02/18 16:45 12/02/18 12/02/18 16:45 16:45 WBC 8.25 10^3/uL 10^3/uL (3.80-9.50) RBC 4.28 10^6/uL L 10^6/uL (4.40-6.38) Hgb 12.8 g/dL L g/dL (13.7-17.5) Hct 39.5 % L % (40.0-51.0) MCV 92.3 fL fL (81.5-99.8) MCH 29.9 pg pg (27.9-34.1) MCHC 32.4 g/dL g/dL (32.4-36.7) RDW 19.1 % H % (11.5-15.2) Plt Count 123 10^3/uL L 10^3/uL (150-400) MPV 11.4 fL fL (8.7-11.7) Neut % (Auto) 73.1 % % (39.3-74.2) Lymph % (Auto) 13.0 % L % (15.0-45.0) Stevens % (Auto) 12.8 % % (4.5-13.0) Eos % (Auto) 0.1 % L % (0.6-7.6) Baso % (Auto) 0.5 % % (0.3-1.7) Nucleat RBC Rel Count 0.0 % % (0.0-0.2) Absolute Neuts (auto) 6.03 10^3/uL 10^3/uL (1.70-6.50) Absolute Lymphs (auto) 1.07 10^3/uL 10^3/uL (1.00-3.00) Absolute Monos (auto) 1.06 10^3/uL H 10^3/uL (0.30-0.80) Absolute Eos (auto) 0.01 10^3/uL L 10^3/uL (0.03-0.40) Absolute Basos (auto) 0.04 10^3/uL 10^3/uL (0.02-0.10) Absolute Nucleated RBC 0.00 10^3/uL 10^3/uL (0-0.01) Immature Gran % 0.5 % % (0.0-1.1) Immature Gran # 0.04 10^3/uL 10^3/uL (0.00-0.10) Sodium 136 mEq/L mEq/L (135-145) Potassium 3.9 mEq/L mEq/L (3.5-5.2) Chloride 89 mEq/L L mEq/L (97-110) Carbon Dioxide 21 mEq/l L mEq/l (22-31) Anion Gap 26 mEq/L H mEq/L (6-14) BUN 11 mg/dL mg/dL (7-23) Creatinine 0.7 mg/dL mg/dL (0.7-1.3) Estimated GFR > 60 Glucose 122 mg/dL H mg/dL (70-100) Calcium 9.7 mg/dL mg/dL (8.5-10.4) Medications Given: Discontinued Medications Sodium Chloride (Ns) 1,000 mls @ 0 mls/hr IV ONCE ONE; Wide Open PRN Reason: Protocol Stop: 12/02/18 16:52 Last Admin: 12/02/18 16:57 Dose: 1,000 mls Lorazepam (Ativan Injection) 2 mg IVP EDNOW ONE Stop: 12/02/18 16:52 Last Admin: 12/02/18 16:56 Dose: 2 mg Departure - Departure Disposition: Home, Routine, Self-Care Clinical Impression: Alcohol withdrawal seizure Qualifiers: Complication of substance-induced condition: uncomplicated Qualified Code(s): F10.230 - Alcohol dependence with withdrawal, uncomplicated Condition: Good Instructions: Alcohol Withdrawal (ED) Additional Instructions: 1. No driving, dangerous activities such as riding a ski lift, swimming in a pool or other behavior that could put you or someone else at risk in the event of a recurrent seizure. You will need to be cleared by a neurologist to resume these activities. 2. Please return to the ED for recurrent seizure, headache, numbness, weakness, altered mental status or other concerns. 3. Please follow up with neurologist you have been referred to this week to schedule a follow-up appointment. Referrals: Tyree Marie MD [Medical Doctor] - As per Instructions
[2018-12-02] MEDS ORDERED: LORazepam 2 MG/ML INJ IVP ONE (16:51)
[2018-12-02] MEDS ORDERED: NS 1,000 ML IV ONE (16:51)
[2018-12-02 17:44] LABS: PLATELET COUNT 123 10^3/uL (150-400)
[2018-12-02 18:44] VITALS: BP 120/81
== END 2018-12-02 19:04 | disposition home or self-care (01) ==
LOC: EDUNIT#
DX: R56.9 Unspecified convulsions (principal); F10.230 Alcohol dependence with withdrawal, uncomplicated; E86.9 Volume depletion, unspecified; I48.91 Unspecified atrial fibrillation
CPT/HCPCS: 96374; J2060